=== PATIENT | female | born 1970 | race Two or more races ===

== ENCOUNTER → 2019-10-12 | Outpatient (CLI) | payer OTHER | END | disposition home or self-care (01) | LOC: CFH 14:47 | PROVIDERS: ATTEND Physician Assistant | DX: D25.9 Leiomyoma of uterus, unspecified (principal); N85.2 Hypertrophy of uterus; E78.1 Pure hyperglyceridemia; K22.4 Dyskinesia of esophagus; K21.9 Gastro-esophageal reflux disease without esophagitis; E55.9 Vitamin D deficiency, unspecified; D50.9 Iron deficiency anemia, unspecified; Z79.3 Long term (current) use of hormonal contraceptives | CPT/HCPCS: 76830 ==

== ENCOUNTER → 2021-03-08 | Outpatient (CLI) | payer OTHER ==
[~2021-03-08] MED LIST: B 12 PO; BP MED PO
[2021-03-08 15:04] LABS: BASOPHILS % (AUTO) 0 % (0-1); EOSINOPHILS % (AUTO) 1 % (1-7); LYMPHOCYTES % (AUTO) 18 % (22-44); MEAN CORPUSCULAR HEMOGLOBIN 27.2 pg (27.0-34.8); MEAN CORPUSCULAR HGB CONC 33.7 g/dL (32.4-35.8); MEAN PLATELET VOLUME 9.5 fL (7.4-10.4); MONOCYTES % (AUTO) 7 % (2-9); NEUTROPHILS % (AUTO) 74 % (42-75); PLATELET COUNT 278 x10^3/uL (130-400); RED BLOOD COUNT 4.65 x10^6/uL (3.82-5.3); RED CELL DISTRIBUTION WIDTH 14.8 % (9.6-15.2)
[2021-03-08 15:06] LABS: MD NO
[2021-03-08 15:13] LABS: ALANINE AMINOTRANSFERASE 18 U/L (12-78); ALBUMIN 3.4 g/dL (3.4-5.0); ANION GAP 6 mmol/L (5-15); CALCIUM 8.6 mg/dL (8.5-10.1); CHLORIDE 104 mmol/L (98-107); CREATININE 0.76 mg/dL (0.55-1.02)
[2021-03-08 15:18] LABS: ALKALINE PHOSPHATASE 55 U/L (45-117); BILIRUBIN,TOTAL 0.4 mg/dL (0.2-1.0); TOTAL PROTEIN 7.2 g/dL (6.4-8.2)
== END | disposition home or self-care (01) ==
LOC: STAR 14:00
PROVIDERS: ATTEND Obstetrics & Gynecology
DX: Z01.812 Encounter for preprocedural laboratory examination (principal); Z20.822 Contact with and (suspected) exposure to COVID-19; D25.1 Intramural leiomyoma of uterus; D50.8 Other iron deficiency anemias; Z98.891 History of uterine scar from previous surgery
CPT/HCPCS: 36415; 80053; 84703; 85025; 93005; U0003

== ENCOUNTER 2021-03-13 11:50 | Inpatient (IN) | payer OTHER ==
[~2021-03-13] VITALS: Ht 167.6 cm; Wt 77.0 kg
[2021-03-13 12:34] VITALS: BP 160/102
[2021-03-13] MEDS ORDERED: BENA1TAB9 PO (12:37)
[2021-03-13 12:40] LABS: HCG UR SG 1.028 (1.003-1.030)
[2021-03-13] MEDS ORDERED: CHLORHEXIDINE 15 ML UDC PO ONE (13:00)
[2021-03-13] MEDS ORDERED: LACTATED RINGERS 1,000 ML IV SCH (13:00)
[2021-03-13] MEDS ORDERED: HALOPERIDOL 5 MG/ML IV PRN (14:30)
[2021-03-13] MEDS ORDERED: morphine SULFATE 10 MG/ML, 1ML IVPush PRN (14:30)
[2021-03-13] MEDS ORDERED: LABETALOL 5MG/ML, 20ML IV PRN (14:30)
[2021-03-13] MEDS ORDERED: hydrALAzine 20 MG/ML, 1ML IV PRN (14:30)
[2021-03-13] MEDS ORDERED: HYDROmorphone 1 MG/ML, 1ML INJ IVPush PRN (14:30)
[2021-03-13] MEDS ORDERED: PROMETHAZINE 25 MG/ML, 1ML IVPush PRN (14:30)
[2021-03-13] MEDS ORDERED: MEPERIDINE/PF 25MG/0.5ML IVPush PRN (14:30)
[2021-03-13] MEDS ORDERED: ACETAMINOPHEN 325 MG TABLET PO PRN ×2 (14:30→18:30)
[2021-03-13] MEDS ORDERED: OXYcodone 5 MG/5 ML ORAL.SOL UDC PO PRN (14:30)
[2021-03-13] MEDS ORDERED: MIDAZOLAM 1 MG/ML, 2ML ONE (14:43)
[2021-03-13] MEDS ORDERED: FENTANYL PF 250 MCG/5ML ONE ×2 (14:44→15:38)
[2021-03-13] MEDS ORDERED: ROCURONIUM 10MG/ML,5ML ONE (15:37)
[2021-03-13] MEDS ORDERED: PROPOFOL 10 MG/ML, 20ML ONE (15:37)
[2021-03-13] MEDS ORDERED: ONDANSETRON 2MG/ML, 2ML ONE (15:37)
[2021-03-13] MEDS ORDERED: CEFAZOLIN 1,000 MG ONE (15:37)
[2021-03-13] MEDS ORDERED: DEXAMETHASONE 4 MG/ML, 1ML ONE (15:37)
[2021-03-13] MEDS ORDERED: NEOSTIGMINE 1 MG/ML, 10ML ONE (15:37)
[2021-03-13] MEDS ORDERED: GLYCOPYRROLATE 0.2MG/1ML, 5ML ONE (15:37)
[2021-03-13] MEDS ORDERED: KETOROLAC 30 MG/1 ML ONE (16:13)
[2021-03-13] MEDS ORDERED: hydrALAzine 20 MG/ML, 1ML ONE (16:13)
[2021-03-13] MEDS ORDERED: FENTANYL PF 100 MCG/2ML ONE (17:14)
[2021-03-13] MEDS ORDERED: OXYcodone 5 MG/5 ML ORAL.SOL UDC ONE (17:15)
[2021-03-13] MEDS: FENTANYL PF 100 MCG/2ML IV PRN ×2 (17:20→17:27)
[2021-03-13] MEDS ORDERED: OXYcodone/APAP 5/325MG TABLET PO PRN (18:30)
[2021-03-13] MEDS ORDERED: KETOROLAC 30 MG/1 ML IV PRN ×2 (18:30→22:00)
[2021-03-13] MEDS ORDERED: ACETAMINOPHEN 650 MG SUPP PR PRN (18:30)
[2021-03-13] MEDS: D5%-LACTATED RINGERS 1,000 ML IV SCH (18:35)
[2021-03-13 18:54] VITALS: BP 128/80
[2021-03-13 20:23] LABS: BASOPHILS % (AUTO) 0 % (0-1); EOSINOPHILS % (AUTO) 0 % (1-7); LYMPHOCYTES % (AUTO) 3 % (22-44); MEAN CORPUSCULAR HEMOGLOBIN 26.3 pg (27.0-34.8); MEAN CORPUSCULAR HGB CONC 32.7 g/dL (32.4-35.8); MEAN PLATELET VOLUME 9.3 fL (7.4-10.4); MONOCYTES % (AUTO) 1 % (2-9); NEUTROPHILS % (AUTO) 95 % (42-75); PLATELET COUNT 281 x10^3/uL (130-400); RED BLOOD COUNT 4.68 x10^6/uL (3.82-5.3); RED CELL DISTRIBUTION WIDTH 14.9 % (9.6-15.2)
[2021-03-13 20:59] LABS: MD SCAN
[2021-03-13] MEDS: SENNA/DOCUSATE TABLET PO SCH (21:00)
[2021-03-13] MEDS ORDERED: ZOLPIDEM 5MG TABLET PO PRN (21:00)
[2021-03-13] MEDS: SIMETHICONE 80 MG CHEW TAB PO SCH (21:29)
[2021-03-13] MEDS: DOCUSATE 100 MG CAPSULE PO SCH (21:29)
[2021-03-13] MEDS: IBUPROFEN 600 MG TABLET PO SCH (23:12)
[2021-03-14 00:22] VITALS: BP 111/71
[2021-03-14] MEDS ORDERED: MORPHINE SULFATE 4 MG/ML, 1ML IVPush PRN (02:00)
[2021-03-14] MEDS: D5%-LACTATED RINGERS 1,000 ML IV SCH (02:26)
[2021-03-14 03:56] VITALS: BP 134/80
[2021-03-14 05:23] LABS: BASOPHILS % (AUTO) 0 % (0-1); EOSINOPHILS % (AUTO) 0 % (1-7); LYMPHOCYTES % (AUTO) 6 % (22-44); MEAN CORPUSCULAR HEMOGLOBIN 26.8 pg (27.0-34.8); MEAN CORPUSCULAR HGB CONC 33.2 g/dL (32.4-35.8); MEAN PLATELET VOLUME 9.3 fL (7.4-10.4); MONOCYTES % (AUTO) 4 % (2-9); NEUTROPHILS % (AUTO) 89 % (42-75); PLATELET COUNT 303 x10^3/uL (130-400); RED BLOOD COUNT 4.33 x10^6/uL (3.82-5.3)
[2021-03-14 05:40] LABS: CHLORIDE 106 mmol/L (98-107)
[2021-03-14 05:42] LABS: MD NO
[2021-03-14 05:45] LABS: ALANINE AMINOTRANSFERASE 28 U/L (12-78); ALBUMIN 2.9 g/dL (3.4-5.0); ALKALINE PHOSPHATASE 57 U/L (45-117); ANION GAP 7 mmol/L (5-15); BILIRUBIN,TOTAL 0.7 mg/dL (0.2-1.0); CALCIUM 7.6 mg/dL (8.5-10.1); CREATININE 0.75 mg/dL (0.55-1.02); TOTAL PROTEIN 6.3 g/dL (6.4-8.2)
[2021-03-14] MEDS: IBUPROFEN 600 MG TABLET PO SCH ×4 (06:24→21:03)
[2021-03-14 07:40] VITALS: BP 145/81
[2021-03-14] MEDS: BENAZEPRIL 10 MG TABLET PO SCH (08:19)
[2021-03-14] MEDS: SIMETHICONE 80 MG CHEW TAB PO SCH ×3 (08:19→21:03)
[2021-03-14] MEDS: HYDROCHLOROTHIAZIDE 12.5 MG CAPSULE PO SCH (08:19)
[2021-03-14] MEDS: DOCUSATE 100 MG CAPSULE PO SCH ×2 (08:19→21:03)
[2021-03-14 19:32] VITALS: BP 131/79
[2021-03-14] MEDS: SENNA/DOCUSATE TABLET PO SCH (21:00)
[2021-03-15 00:38] VITALS: BP 121/75
[2021-03-15] MEDS: IBUPROFEN 600 MG TABLET PO SCH ×2 (05:47→10:45)
[2021-03-15 08:06] VITALS: BP 129/84
[2021-03-15] MEDS: DOCUSATE 100 MG CAPSULE PO SCH (09:00)
[2021-03-15] MEDS: BENAZEPRIL 10 MG TABLET PO SCH (09:15)
[2021-03-15] MEDS: HYDROCHLOROTHIAZIDE 12.5 MG CAPSULE PO SCH (09:15)
[2021-03-15] MEDS: SIMETHICONE 80 MG CHEW TAB PO SCH (09:16)
[2021-03-15] MEDS ORDERED: IBUP-1222 PO (09:36)
[2021-03-15] MEDS ORDERED: OXYC1TAB14 PO (09:36)
[2021-03-15] MEDS ORDERED: DOCU-131 PO (09:38)
== END 2021-03-15 11:04 | disposition home or self-care (01) | DRG 743 ==
LOC: ORIP 11:50 → 4NE 17:52
PROVIDERS: ADMIT Obstetrics & Gynecology; ATTEND Obstetrics & Gynecology
PROC: 0UT70ZZ Resection of Bilateral Fallopian Tubes, Open Approach (ICD-10-PCS; 2021-03-13)
PROC: 0UT90ZZ Resection of Uterus, Open Approach (ICD-10-PCS; principal; 2021-03-13 14:30)
DX: D25.1 Intramural leiomyoma of uterus (principal); D50.9 Iron deficiency anemia, unspecified; I10 Essential (primary) hypertension; Z98.891 History of uterine scar from previous surgery
CPT/HCPCS: 36415; J7121; 80053; 81025; 85025; 86850; 86900; 88307; G0378; J0690; J1100; J1885; J2250; J2405; J2704; J2710; J3010; J0360; J7120